=== PATIENT | male | born 1985 | race Caucasian/White ===

== ENCOUNTER 2024-02-24 15:00 | Outpatient (RCR) | payer OTHER, SELFPAY ==
--- NOTE | 2023-12-07 17:15 | PTOPEVAL1 ---
Assessment and note entered by Chrissie Valencia, PT Evaluation Information Assessment Status Evaluation Diagnosis M54.50 ICD-10 Condition Codes (PT) Pain in low back M54.50,M54.15,Difficulty Walking R26.2,Weakness R53.1 Onset approx 6 months ago Subjective Information Pt reports having a chronic back pain that is worsening lately. He has received Chiropractic treatments in the past but seem to offer minimal relief, reports was doing yoga and seemed to help but has not been consistent with his workout program recently due to work and life changes, states has been inactive and may have gained weight. States him and just moved to a new house, but he was more careful with lifting and moving furniture and states did not do a whole lot . Described the pain as pressure, dull and constantly achy to the center of lowback, runs down to lateral side of R butt cheek and R upper thigh. Occasionally experiences spasm and cramps to arch of R foot and R big toe. Walking more than 30 min, prolonged sitting and sleeping on the L side increases the pain; relieved with inactivity, occasional Ibuprofen and heating pad. Reports wanting to be able to perform normal daily activities without pain and be able to walk longer distances without pain and discomfort. Assessment PT Clinical Summary Pt is a 38 yo male who presents to therapy with c/ o lowback pain that started approx 6 months ago, intermittent in nature, however is gradually worsening as he is being reportedly sedentary. X- ray results showed mild chronic anterior wedging of T11 and T12 vertebral bodies. States that pain goes down to lateral side of his R buttocks and upper thigh. Demos weakness, postural impairments, ROM deficits, gait deviations and decreased standing and ambulation tolerance due to the pain and discomfort. He will benefit from skilled PT to improve mobility and strength, address pain and increase endurance to improve quality of life. Plan of Care Interventions Electrical Stimulation,Gait Training,Hot Pack/Cold Pack,Manual Therapy,Mechanical Traction,Neuro Re- education,Patient/Caregiver Education,Prosthetic Training,Therapeutic Activities,Therapeutic Exercise,Ultrasound,Other Other Interventions IASTM, Taping PT Services Indicated Yes Treatment Frequency and 2x/wk x 12 visits Duration These treatments will address the objective and functional deficits as defined above. The patient will be advanced safely and appropriately in order for the patient to progress towards his/her prior level of function. Additional exercises will be introduced and as well as a comprehensive home exercise program upon discharge, if needed, ?to ensure carryover of functional gains achieved in the clinic. This treatment plan has been reviewed and agreement upon by the patient.
--- NOTE | 2024-01-24 13:58 | PCPTNOTE ---
LATE ENTRY This note is being entered to document information to the patient's record. The following information was omitted on [01/15/2024], by [Chrissie Valencia, PT]. MANUAL THERAPY: Deep Tissue mob to cervical through lumbar paraspinals; MFR to bilat traps, rhomboids and levator scap area; soft tissue mob to bilat SI region and R lower thoracic (pain sensitive area).
--- NOTE | 2024-02-01 11:23 | PTOPPROG ---
Assessment and note entered by Chrissie Valencia, PT [facility] Information Assessment Status Progress Diagnosis M54.50 ICD-10 Condition Codes (PT) Pain in low back M54.50,M54.15,Difficulty Walking R26.2,Weakness R53.1 Onset approx 6 months ago Subjective Information Pt reports he is definitely seeing a difference, he is sleeping better and longer, compliant with HEPs and stretches before bed. However, he continue to feel discomfort when laying down on the R side, not as severe as it used to be. Assessment PT Clinical Summary Pt received a total of 10 treatment sessions and demos good gains in mobility. Pain levels are down to 2/10 and has reduced frequency and occurrence of pain/discomfort. Pain has noted to be centralized and does not radiate to R thigh compared to reports at [facility]. He also scored 4 in Modified Oswestry indicating very minimal disability at this time indicating good progress with therapy. Pt will benefit from continued skilled PT intervention to further improve pain and discomfort on the lowback and improve functional strength and mobility to allow painfree performance of IADLs. Plan of Care Interventions Electrical Stimulation,Gait Training,Hot Pack/Cold Pack,Manual Therapy,Mechanical Traction,Neuro Re- education,Patient/Caregiver Education,Prosthetic Training,Therapeutic Activities,Therapeutic Exercise,Ultrasound,Other Other Interventions IASTM, Taping PT Services Indicated Yes Treatment Frequency and 2x/wk x 8 visits Duration These treatments will address the objective and functional deficits as defined above. The patient will be advanced safely and appropriately in order for the patient to progress towards his/her prior level of function. Additional exercises will be introduced and as well as a comprehensive home exercise program upon discharge, if needed, ?to ensure carryover of functional gains achieved in the clinic. This treatment plan has been reviewed and agreement upon by the patient.
== END 2024-02-29 15:48 | disposition still patient (30) ==
LOC: ANHHIPT 15:00
PROVIDERS: PCP Nurse Practitioner Family; Visit Provider Nurse Practitioner Family
DX: M54.50 Low back pain, unspecified (principal)
CPT/HCPCS: 97012; 97014; 97035; 97110; 97112; 97140; 97161; 97530; 97750; G0283

== ENCOUNTER 2024-03-08 08:30 | Outpatient (RCR) | payer OTHER, SELFPAY ==
--- NOTE | 2024-03-11 18:04 | PTOPDC ---
Assessment and note entered by Chrissie Valencia, PT Evaluation Information Assessment Status Discharge Diagnosis M54.50 ICD-10 Condition Codes (PT) Pain in low back M54.50,Radiculopathy, thoracolumbar region M54.15,Pain in right hip M25. 551,Abnormalities of gait and mobility R26.9, Weakness R53.1 Onset approx 6 months ago Subjective Information Pt reports he has been feeling significantly better compared to when he started PT. States he is now able to tolerate longer distance walking, sitting, standing and is able to sleep better following the therapy recommendation for daily flexibility exercises and appropriate mattress and sleep positioning with appropriate supports. He feels ok to continue performing HEPs independently in order to maintain what he has gained from this therapy program. Assessment PT Clinical Summary Pt received a total of 16 skilled PT treatment sessions and showed significant gains in pain reduction, flexibility, and strength. Pt reports compliant with HEPs and has been consistent with performing guided YOGA sessions in youtube; planned on following a maintenance wellness program by scheduling a once a month full body massage from a licensed massage therapist to loosen tightened muscles and improve relaxation. Skilled PT is not anymore necessary at this time. Plan of Care PT Services Indicated No
--- NOTE | 2024-03-11 18:07 | PTOPDC ---
Assessment and note entered by Chrissie Valencia, PT Discharge Information Assessment Status Discharge Diagnosis M54.50 ICD-10 Condition Codes (PT) Pain in low back M54.50,Radiculopathy, thoracolumbar region M54.15,Pain in right hip M25. 551,Abnormalities of gait and mobility R26.9, Weakness R53.1 Onset approx 6 months ago Subjective Information Pt reports he has been feeling significantly better compared to when he started PT. States he is now able to tolerate longer distance walking, sitting, standing and is able to sleep better following the therapy recommendation for daily flexibility exercises and appropriate mattress and sleep positioning with appropriate supports. He feels ok to continue performing HEPs to maintain gains from this therapy program. Assessment PT Clinical Summary Pt received a total of 16 skilled PT treatment sessions and showed significant gains in pain reduction, flexibility, and strength. Pt reports compliant with HEPs and has been consistent with performing guided YOGA sessions in youtube; planned on following a maintenance wellness program by scheduling a once a month full body massage from a licensed massage therapist to loosen tightened muscles and improve relaxation. Skilled PT is not anymore necessary at this time. Plan of Care PT Services Indicated No
== END 2024-03-14 10:40 | disposition home or self-care (01) ==
LOC: ANHHIPT 08:30
PROVIDERS: PCP Nurse Practitioner Family; Visit Provider Nurse Practitioner Family
DX: M54.50 Low back pain, unspecified (principal)
CPT/HCPCS: 97012; 97035; 97110; 97140; 97750